=== PATIENT | male | born 1985 | race Caucasian/White ===

== ENCOUNTER 2017-07-26 16:02 | Emergency (ER) | payer BC ==
--- NOTE | 2017-07-26 16:49 | EDM.PDOC ---
ED HPI GENERAL MEDICAL PROBLEM - General Chief Complaint: Back Pain or Injury Stated Complaint: ABDOMINAL PAIN Time Seen by Provider: 07/26/17 16:40 Source of Information: Reports: Patient History Limitations: Reports: No Limitations - History of Present Illness INITIAL COMMENTS - FREE TEXT/NARRATIVE: The patient states that he developed pain to his right SI joint area him a sharp in character, about 2 days ago. It has been coming and going, lasting several hours when present. The pain does not radiate. The patient has not identified any modifiers. The patient states that the pain is similar to when he was diagnosed with a kidney stone in 2016, except at that time, the pain radiated to his groin, which it does not this time. The patient denies having any urinary symptoms, such as dysuria, urinary urgency , or frequency. No recent fever, nausea, vomiting, constipation, or diarrhea. The patient does not have a PCP. Right Lower Back Pain Score (Numeric/FACES): 6 - Related Data Allergies Allergy/AdvReac Type Severity Reaction Status Date / Time No Known Allergies Allergy Verified 07/26/17 16:11 Home Meds: Home Meds Hydrocodone/Acetaminophen [Brady 5-325 Tablet] 1 - 2 tab PO Q6H PRN #20 tablet 07/26/17 [Rx] Ondansetron [Zofran ODT] 1 tab PO Q8H PRN #10 tab.dis 07/26/17 [Rx] Tamsulosin HCl [Flomax] 1 cap PO QPM PRN #5 cap.er.24h 07/26/17 [Rx] Past Medical History Genitourinary History: Reports: Renal Calculus - Past Surgical History HEENT Surgical History: Reports: Oral Surgery (Longs teeth extraction) Social & Family History - Family History Family Medical History: Noncontributory - Tobacco Use Smoking Status *Q: Former Smoker Years of Tobacco use: 12 Packs/Tins Daily: 1 Month Tobacco Last Used: Quit 2015 - Caffeine Use Caffeine Use: Reports: Coffee - Alcohol Use Alcohol Use History: Yes Alcohol Use Frequency: Socially - Recreational Drug Use Recreational Drug Use: Yes Drug Use in Last 12 Months: Yes Recreational Drug Type: Reports: Marijuana/Hashish (daily) - Living Situation & Occupation Living situation: Reports: Single, with Family (Brother) Occupation: Employed (B[employer]) ED ROS GENERAL - Review of Systems Review Of Systems: ROS reveals no pertinent complaints other than HPI. ED EXAM, GENERAL - Physical Exam Exam: See Below Exam Limited By: No Limitations General Appearance: Alert, WD/WN, No Apparent Distress Eye Exam: Bilateral Eye: Normal Inspection Ears: Normal External Exam, Hearing Grossly Normal Nose: Normal Inspection, No Blood Throat/Mouth: Normal Inspection, Normal Lips, Normal Voice, No Airway Compromise Head: Atraumatic, Normocephalic Neck: Normal Inspection, Full Range of Motion Respiratory/Chest: No Respiratory Distress, Lungs Clear, Normal Breath Sounds, No Accessory Muscle Use Cardiovascular: Normal Peripheral Pulses, Regular Rate, Rhythm, No Gallop, No JVD, No Murmur, No Rub Peripheral Pulses: 4+: Radial (L), Radial (R) GI/Abdominal: Normal Bowel Sounds, Soft, Non-Tender, No Organomegaly, No Distention, No Abnormal Bruit, No Mass (Male) Exam: Deferred Rectal (Males) Exam: Deferred Back Exam: Normal Inspection, Full Range of Motion, Other (Reproducible tenderness to palpation over the right SI joint. Nontender in the surrounding area. The same pain is induced with straight leg raise to approximately 45 on the right.). No: CVA Tenderness (L), CVA Tenderness (R) Extremities: Normal Inspection, Normal Range of Motion, No Pedal Edema, Normal Capillary Refill Neurological: Alert, Oriented, Normal Cognition, No Motor/Sensory Deficits Psychiatric: Normal Affect Skin Exam: Warm, Dry, Intact, Normal Color, No Rash Course - Vital Signs Last Recorded V/S: Last Vital Signs Temp 36.1 C 07/26/17 16:11 Pulse 87 07/26/17 16:11 Resp 18 07/26/17 16:11 BP 131/80 07/26/17 16:11 Pulse Ox 100 07/26/17 16:11 - Orders/Labs/Meds Orders: Active Orders 24 hr Category Date Time Status Strain Urine [RC] ASDIRECTED Care 07/26/17 17:54 Active Sodium Chloride 0.9% [Normal Saline] 1,000 ml Med 07/26/17 17:45 Active IV ASDIRECTED Medication Orders Sodium Chloride (Normal Saline) 1,000 mls @ 150 mls/hr IV ASDIRECTED GIULIANO Last Admin: 07/26/17 18:01 Dose: 150 mls/hr Labs: Laboratory Tests 07/26/17 Range/Units 17:01 Urine Color Yellow (Yellow) Urine Appearance Slt cloudy H (Clear) Urine pH 6.0 (5.0-8.0) Ur Specific [place] 1.025 (1.005-1.030) Urine Protein Negative (Negative) Urine Glucose (UA) Negative (Negative) Urine Ketones 1+ H (Negative) Urine Occult Blood 3+ H (Negative) Urine Nitrite Negative (Negative) Urine Bilirubin Negative (Negative) Urine Urobilinogen 0.2 (0.2-1.0) Ur Leukocyte Esterase Negative (Negative) Urine RBC 75-100 H (0-5) /hpf Urine WBC 0-5 (0-5) /hpf Ur Epithelial Cells 0-5 (0-5) /hpf Urine Bacteria Few (FEW) /hpf Urine Mucus Not seen (FEW) /hpf Meds: Medications Generic Name Dose Route Start Last Admin Trade Name Freq PRN Reason Stop Dose Admin Sodium Chloride 1,000 mls @ 150 mls/hr 07/26/17 17:45 07/26/17 18:01 Normal Saline IV 150 mls/hr ASDIRECTED GIULIANO Administration Discontinued Medications Generic Name Dose Route Start Last Admin Trade Name Freq PRN Reason Stop Dose Admin Ketorolac Tromethamine 30 mg 07/26/17 17:53 07/26/17 18:03 Toradol IVPUSH 07/26/17 17:54 30 mg ONETIME STA Administration Tamsulosin HCl 0.4 mg 07/26/17 17:53 07/26/17 18:02 Flomax PO 07/26/17 17:54 0.4 mg ONETIME ONE Administration - Re-Assessments/Exams Free Text/Narrative Re-Assessment/Exam: 07/26/17 16:48 Clinically, the patient appears to have a muscle or connective tissue strain over the right SI joint area, not a kidney stone, however, because of the similarity to his prior kidney stone, I have ordered a urinalysis. I am not expecting that there will be blood in the urine, however, if there is, we may consider performing a CT scan to evaluate for stone. 07/26/17 17:44 The patient's urinalysis, surprisingly, finds 3+ occult blood and 75-100 RBCs. I have therefore ordered a CT scan of the abdomen and pelvis without IV contrast , along with normal saline at 150 mL/hr. 07/26/17 17:52 The patient states that since I initially saw him, another wave of pain came, quite severe, to the point that he thought he might throw up, however, it has since subsided and he is now comfortable again. Nevertheless, I will order some Flomax and Toradol. 07/26/17 18:49 CT of the abdomen and pelvis without contrast is read by Dr. Jaquez as: 1. Slightly dilated collecting system and right ureter on the right side. This finding is caused by a distal right ureteral stone measuring about 2.8 mm. As mentioned above, this stone lies about 2 cm from the UVJ. 2. Both kidneys shows very small nonobstructing calculi. (sic) 3. No additional abnormality is appreciated on noncontrast CT study of the abdomen and pelvis performed as a ureteral stone protocol. 07/26/17 19:00 The above was discussed with the patient. Patient states it is quite comfortable at this time. I will discharge him home with prescriptions for Brady , Zofran, and Flomax. I will refer him to Dr. Romero, with the stability that Dr. Romero will not want to see him unless he cannot pass the stone within about a week. The patient has been given a urine strainer. Departure - Departure Time of Disposition: 19:01 Disposition: Home, Self-Care 01 Condition: Fair Clinical Impression: Ureterolithiasis - Discharge Information Prescriptions: Hydrocodone/Acetaminophen [Brady 5-325 Tablet] 1 - 2 tab PO Q6H PRN #20 tablet PRN Reason: Pain (Severe 7-10) Referrals: PCP,None [Primary Care Provider] - Tj Romero MD [Physician] - Forms: ED Department Discharge Additional Instructions: You were seen in the emergency room for lower right back pain. Workup in the ER included a urinalysis and a CT scan of your abdomen and pelvis. Your workup found a 2.8 mm stone in your right ureter, just 2 cm from the bladder. Based on the size and location of this stone, you will MOST LIKELY pass this stone on your own. Take [id number] ibuprofen, 2-3 tablets (400-600 mg) every 8 hours, with food, as needed for pain. You may take 1-2 tablets of the narcotic pain reliever Brady up to every 6 hours , as needed for pain not relieved by ibuprofen. If you take Brady, do not drive or operate heavy machinery for 10 hours afterwards. Brady may cause constipation , so consider taking a stool softener. A prescription for the anti-nausea medicine has been sent to the [facility], [address] [place] [address]. Dissolve 1 tablet on your tongue up to every 8 hours, as needed for nausea/vomiting. A prescription for the anti-spasm medicine Flomax has been sent to the [facility]. Take one tablet every evening starting tomorrow evening, Saturday, , as needed for pain. Stay adequately hydrated. Strain all your urine. If you capture a stone, take it to your doctor for analysis. If you are still having pain by the middle of this coming week, please follow- up with the Urologist Dr. Romero. If any other problems, please do not hesitate to return to the ER. - My Orders Last 24 Hours: My Active Orders 07/26/17 17:45 Sodium Chloride 0.9% [Normal Saline] 1,000 ml IV ASDIRECTED 07/26/17 17:54 Strain Urine [RC] ASDIRECTED - Assessment/Plan Last 24 Hours: My Active Orders 07/26/17 17:45 Sodium Chloride 0.9% [Normal Saline] 1,000 ml IV ASDIRECTED 07/26/17 17:54 Strain Urine [RC] ASDIRECTED
[2017-07-26] MEDS ORDERED: Sodium Chloride 0.9% 1,000 ML IV SCH (17:45)
[2017-07-26] MEDS ORDERED: Tamsulosin 0.4 MG Cap.ER PO ONE (17:53)
[2017-07-26] MEDS ORDERED: Ketorolac 30 MG/ML SDV IVPUSH STA (17:53)
--- NOTE | 2017-07-26 18:31 | CT ---
CT abdomen and pelvis Technique: Multiple axial sections were obtained from above the dome of the diaphragm inferiorly through the pubic symphysis. Intravenous and oral contrast not utilized. Study has been performed as a ureteral stone protocol. Findings: Collecting system of the right kidney and right ureter are mildly dilated. This is caused by a distal obstructing stone measuring about 2.8 mm which is located approximately 2 cm from the UVJ. No other abnormal calcifications are seen along the course of the ureters. 3 very small nonobstructing calculi are seen within the left kidney. 4 very small nonobstructing calculi are noted within the right kidney. Visualized lung bases shows nothing acute. Noncontrast appearance of the liver and spleen appears within normal limits. Adrenal glands show no nodule. Pancreas is within normal limits. Gallbladder contains no calcified gallstones. Aorta shows no aneurysmal dilatation. No retroperitoneal adenopathy or mesenteric abnormalities are seen. No pelvic mass or adenopathy is identified. Appendix is seen and is retrocecal and appears within normal limits. No bowel dilatation is seen. No free fluid or inflammatory change is seen. Bone window settings were reviewed which appear within normal limits for the patient's age. Impression: 1. Slightly dilated collecting system and right ureter on the right side. This finding is caused by a distal right ureteral stone measuring about 2.8 mm. As mentioned above, this stone lies about 2 cm from the UVJ. 2. Both kidneys shows very small nonobstructing calculi. 3. No additional abnormality is appreciated on noncontrast CT study of the abdomen and pelvis performed as a ureteral stone protocol. Diagnostic code #3
== END 2017-07-26 19:31 | disposition home or self-care (01) ==
LOC: JD.ED 16:02
DX: N20.2 Calculus of kidney with calculus of ureter (principal); Z87.891 Personal history of nicotine dependence
CPT/HCPCS: 74176; 81001; 96361; 96374; 99284; A9270; J1885; J7040